=== PATIENT | male | born 1980 | race African-American/Black ===

== ENCOUNTER 2020-05-11 09:52 | Emergency (ER) | payer SELFPAY ==
[2020-05-11 09:54] VITALS: BP 139/78; PULSE 68; RESP 14; TEMP 36.4; O2SAT 100
[2020-05-11] MEDS: SODIUM CHLORIDE 0.9% IV 1,000 ML 999 ML IV CONT ×2 (10:58→11:46)
[2020-05-11 11:04] LABS: Basophils Percent Auto 0.4 % (0.2-1.2); Eosinophils Percent Auto 0.4 % (0-4.4); Hemoglobin 14.5 g/dL (14.0-18.0); Immature Granulocyte Absolute 0.01 K/mm3 (0.00-0.031); Immature Granulocyte Percent A 0.2 % (0-0.5); Lymphocytes Absolute Auto 1.55 K/mm3 (0.9-3.2); Lymphocytes Percent Auto 33.8 % (18.3-44.2); Mean Corpuscular Hemoglobin 26.7 pg (26-34); Mean Platelet Volume 10.7 fl (7.4-10.4); Monocytes Absolute Auto 0.3 K/mm3 (0.1-0.6); Neutrophils Absolute Auto 2.7 K/mm3 (1.3-6.7); Neutrophils Percent Auto 58.2 % (45.5-73.1); Platelet Count Result 224 k/mm3 (150-375); Red Blood Count 5.43 M/mm3 (4.6-6.20); Red Cell Distribution Width 13.2 % (11.5-14.5); White Blood Count 4.6 K/mm3 (4.5-10.0)
[2020-05-11 11:20] LABS: Alanine Aminotransferase 31 U/L (4-50); Albumin Level 4.6 g/dL (3.5-5.1); Alkaline Phosphatase 66 U/L (38-126); Anion Gap 9 mmol/L (8-16); Aspartate Amino Transferase 56 U/L (17-59); Bilirubin,Total 0.8 mg/dL (0.2-1.3); Blood Urea Nitrogen 8 mg/dL (9-20); CRP < 0.5 mg/dL (<1.0); Calcium 9.2 mg/dL (8.4-10.2); Carbon Dioxide 27 mmol/L (22-30); Chloride 102 mmol/L (98-107); Creatine Kinase 1526 U/L (55-170); Estimated CRCL calculation 78 ml/min; Estimated Glomerular Filt Rate > 60; Glucose 112 mg/dL (75-110); Magnesium 1.7 mg/dL (1.6-2.3); Potassium 4.3 mmol/L (3.4-5.0); Sodium 138 mmol/L (137-145)
--- NOTE | 2020-05-11 11:45 | ED.GENADULT ---
HPI - General Adult General Chief complaint: Unspecified Stated complaint: body locked up Time Seen by Provider: 05/11/20 10:27 Source: patient Mode of arrival: ambulatory Limitations: no limitations History of Present Illness HPI narrative: Patient is a 39-year-old male who presents to emergency department for evaluation of cramping of the bilateral legs that is moderate in nature as well as the low back started this morning patient denies similar occurrence in the past has not taken anything for his symptoms presents per private vehicle denies any recent illness sick exposures or any strenuous or exertional activities or heat exposure. Patient on arrival in the room in no distress symptoms worsen with activity. Patient does note that he does run 3 times a week Related Data Allergies Allergy/AdvReac Type Severity Reaction Status Date / Time No Known Allergies Allergy Verified 05/11/20 09:56 Review of Systems Review of Systems: All systems reviewed & are unremarkable except as noted in HPI and below PMFSH Social History Social History (Updated 05/11/20 @ 11:46 by Alok Scruggs PA-C) Smoking status: Never smoker Gender identity (if verbalized by the patient): Male Exam Narrative: Exam Narrative: GENERAL: Well-appearing, well-nourished, and in no acute distress. HEAD: Normocephalic, atraumatic. EYES: PERRLA and EOMI. ENT: Nares clear, no rhinorrhea or epistaxis. Mucous membranes moist. Oropharynx without tonsillar hypertrophy exudate or other lesions. CHEST: Clear to auscultation. No respiratory distress. No wheezes rales or rhonchi HEART: Regular rate and rhythm. No murmur heard. Normal peripheral pulses. ABDOMEN: Soft, nontender, nondistended EXTREMITIES: Normal range of motion. No edema. Tenderness of the bilateral calves no deformities noted SKIN: Warm, dry, no rash. NEURO: No focal deficits. Alert and oriented x3. PSYCH: Normal mood and affect. Course Course Emergency Course: Patient in the room aware of case findings treatment plan and diagnosis. Resting comfortably in the room hydrated at this time also given some pain medication Vital Signs Vital signs: Vital Signs Temperature 97.6 F 05/11/20 09:54 Pulse Rate 68 05/11/20 09:54 Respiratory Rate 14 05/11/20 09:54 Blood Pressure 139/78 05/11/20 09:54 Pulse Oximetry 100 05/11/20 09:54 Temperature 97.6 F 05/11/20 09:54 Pulse Rate 78 05/11/20 11:47 Respiratory Rate 20 05/11/20 11:47 Blood Pressure 142/70 H 05/11/20 11:47 Pulse Oximetry 99 05/11/20 11:47 Medical Decision Making MDM Narrative Medical decision making narrative: Patients injury or pain is consistent with musculoskeletal etiology. No signs of neurological or vascular compromise on exam. Compartments and tisues are soft without signs of compartment syndrome. Pain is felt appropriate for further evaluation on an outpatient basis. Patient likely with rhabdo secondary to running is the likely etiology was hydrated which is likely the cause of his pain and Vital Signs Vital Signs: Vital Signs Temperature 97.6 F 05/11/20 09:54 Pulse Rate 68 05/11/20 09:54 Respiratory Rate 14 05/11/20 09:54 Blood Pressure 139/78 05/11/20 09:54 Pulse Oximetry 100 05/11/20 09:54 Temperature 97.6 F 05/11/20 09:54 Pulse Rate 78 05/11/20 11:47 Respiratory Rate 20 05/11/20 11:47 Blood Pressure 142/70 H 05/11/20 11:47 Pulse Oximetry 99 05/11/20 11:47 Lab Data Result diagrams: 05/11/20 10:57 05/11/20 10:57 Labs: Lab Results 05/11/20 05/11/20 05/11/20 Range/Units 10:48 10:57 10:57 WBC 4.6 (4.5-10.0) K/mm3 RBC 5.43 (4.6-6.20) M/mm3 Hgb 14.5 (14.0-18.0) g/dL Hct 44.0 (42.0-52.0) % MCV 81.0 (80-100) fl MCH 26.7 (26-34) pg MCHC 33.0 (32-36) g/dl RDW 13.2 (11.5-14.5) % Plt Count 224 (150-375) k/mm3 MPV 10.7 H (7.4-10.4) fl Immature Gran % (Auto) 0.2
[2020-05-11 11:47] VITALS: BP 142/70; PULSE 78; RESP 20; O2SAT 99
[2020-05-11 11:59] LABS: Erythrocyte Sedimentation Rate 7 mm/hr (0-20)
[2020-05-11 12:01] LABS: Amphetamine Screen Urine Negative (Negative); Barbiturate Screen Urine Negative (Negative); Benzodiazepines Screen Urine Negative (Negative); Cannabinoid Screen Urine Positive (Negative); Cocaine Screen Urine Negative (Negative); Methadone Screen Urine Negative (Negative); Opiate Screen Urine Negative (Negative); Phencyclidine Screen Urine Negative (Negative)
[2020-05-11 13:44] VITALS: BP 135/71; PULSE 70; RESP 14; O2SAT 99
== END 2020-05-11 13:50 | disposition home or self-care (01) ==
PROVIDERS: Emergency Medicine Emergency Medical Services; Emergency Provider Emergency Medicine
DX: M62.82 Rhabdomyolysis (principal)
CPT/HCPCS: 36415; 80053; 80307; 82550; 83735; 85025; 85652; 86140; 96361; 96374; 99284; J0131; J7030